=== PATIENT | female | born 1985 | race Caucasian/White ===

== ENCOUNTER 2019-05-13 13:05 | Emergency (ER) | payer BC ==
[2019-05-13] MEDS ORDERED: CHLORHEXIDINE GLUCONATE 4 % 15 ML UD TOP ONE (13:19)
--- NOTE | 2019-05-13 13:28 | ED.PDOC ---
History of Present Illness - General Chief Complaint: General Stated Complaint: Fish hook in elke L index finger Time Seen by Provider: 05/13/19 13:24 Source: patient Exam Limitations: no limitations - History of Present Illness Initial Comments: Latha Johnson 34 y/o female stated she accidentally come in contact with fishook on their pickup truck and got embedded on her left index finger. Timing/Duration: 1-3 hours Severity: mild Improving Factors: rest Worsening Factors: movement Associated Symptoms: other - pain finger Allergies/Adverse Reactions: Allergies NO KNOWN ALLERGY Allergy (Verified 05/13/19 14:17) Home Medications: Ambulatory Orders Acetaminophen W/ Codeine [Tylenol/Codeine #4 300-60 mg] 1 ea PO Q4HR PRN #14 tab 05/13/19 Amoxicillin [Amoxil] 1,000 mg PO BID #32 cap 05/13/19 Methimazole 10 mg PO DAILY 05/13/19 Review of Systems - Review of Systems Skin: States: see HPI, other - FB left index finger All other Systems: Reviewed and Negative, No Change from Baseline Past Medical History (General) - Patient Medical History Hx Stroke: No Hx of COPD: No Hx Congestive Heart Failure: No Hx Hypertension: No Hx Thyroid Disease: Yes - Hyper Hx Diabetes: No Hx Cancer: No Hx MRSA: No Surgical History: cholecystectomy, other - Vaccination History Hx Tetanus, Diphtheria Vaccination: No Hx Influenza Vaccination: No Hx Pneumococcal Vaccination: No - Social History Hx Tobacco Use: No Hx Alcohol Use: No Hx Substance Use: No Hx Substance Use Treatment: No Hx Depression: No - Female History Patient is a Female of Child Bearing Age (10 -59 yrs old): Yes Patient : No - IUD Family Medical History - Family History Mother Grandparents Living Status: Unknown Hx Family Cancer: Yes Father Grandparents Living Status: Unknown Hx Family Cancer: Yes Physical Exam - Physical Exam General Appearance: Alert, Comfortable Eye Exam: bilateral normal Ears, Nose, Throat: hearing grossly normal Neck: normal inspection Respiratory: lungs clear, normal breath sounds Cardiovascular/Chest: regular rate, rhythm, no murmur Peripheral Pulses: radial,right: 2+, radial,left: 2+ Gastrointestinal/Abdominal: non tender, soft Back Exam: normal inspection Extremity: no pedal edema, no calf tenderness, other - fishook left index finger Neurologic: alert, oriented x 3 Skin Exam: normal color, warm/dry Progress - Progress Progress: 05/13/19 14:11 Vital Signs - 8 hr 05/13/19 13:14 Temperature 97.2 F L Pulse Rate [R 97 H finger] Respiratory 20 Rate Blood Pressure 143/90 [R arm] O2 Sat by Pulse 99 Oximetry Procedures - Foreign Body Removal Foreign Body Removal: fish hook - distal left index finger Foreign Body Physician Comment:: soak in hibiclens and 100cc ns then MCP block done with Lidocaine 1% no epi Departure - Departure Clinical Impression: Fish hook injury of finger of left hand Qualifiers: Encounter type: initial encounter Qualified Code(s): S69.92XA - Unspecified injury of left wrist, hand and finger(s), initial encounter Time of Disposition: 14:14 Disposition: Discharge to Home or Self Care Condition: Good Departure Forms: ED Discharge - Pt. Copy, Patient Portal Self Enrollment Instructions: Wound Care (DC) Prescriptions: Acetaminophen W/ Codeine [Tylenol/Codeine #4 300-60 mg] 1 ea PO Q4HR PRN #14 tab PRN Reason: Pain Amoxicillin [Amoxil] 1,000 mg PO BID #32 cap Home Medications: Ambulatory Orders Acetaminophen W/ Codeine [Tylenol/Codeine #4 300-60 mg] 1 ea PO Q4HR PRN #14 tab 05/13/19 Amoxicillin [Amoxil] 1,000 mg PO BID #32 cap 05/13/19 Methimazole 10 mg PO DAILY 05/13/19 Additional Instructions: Follow up with primary MD for recheck 15 May 2019 as needed Avoid getting wet left index finger for 5 days
[2019-05-13] MEDS ORDERED: TETANUS,DIPHTHERIA,PERTUSSIS 1 EA SYG IM ONE (13:29)
[2019-05-13] MEDS ORDERED: LIDOCAINE 1% 10 ML VIAL INJ ONE (13:48)
[2019-05-13] MEDS ORDERED: NEOMYCIN-BACITRACIN-POLYMYXIN 0.9 GM UD TOP ONE (14:05)
[2019-05-13] MEDS ORDERED: HYDROcodone 10MG/APAP 325MG 1 EA TAB PO ONE (14:14)
[2019-05-13] MEDS ORDERED: AMOXICILLIN 500 MG CAP PO ONE (14:15)
[2019-05-13 14:31] VITALS: BP 121/84; TEMP 97.6; O2SAT 98
== END 2019-05-13 14:30 | disposition home or self-care (01) ==
LOC: ER 13:05
DX: S60.451A Superficial foreign body of left index finger, initial encounter (principal); E05.90 Thyrotoxicosis, unspecified without thyrotoxic crisis or storm; Z23 Encounter for immunization; Y92.812 Truck as the place of occurrence of the external cause